=== PATIENT | female | born 1985 | race Caucasian/White ===

== ENCOUNTER 2017-12-28 20:04 | Emergency (ER) | payer SELFPAY ==
[~2017-12-28] VITALS: Ht 152.4 cm; Wt 68.9 kg
[2017-12-28 20:09] VITALS: BP 132/75
[2017-12-28 20:13] VITALS: BP 132/75
--- NOTE | 2017-12-28 20:13 | NUR ---
TO LOBBY A/W BED, JOSELO BLOOD NOTED
[2017-12-28] MEDS ORDERED: NACL 0.9% 1,000 ML IV ONE (22:15)
--- NOTE | 2017-12-28 22:40 | NUR ---
PATIENT LEFT WITHOUT BEING SEEN BY DR. Garcia. NO FURTHER CARE PROVIDED FOR PATIENT.
--- NOTE | 2017-12-28 22:50 | NUR ---
Per Dr Garcia's request called pt and left message for her to return to ER.
== END 2017-12-28 22:51 | disposition left against medical advice (07) ==
LOC: MED 20:04
DX: O21.9 Vomiting of pregnancy, unspecified (principal); Z3A.19 19 weeks gestation of pregnancy; Z53.21 Procedure and treatment not carried out due to patient leaving prior to being seen by health care provider